=== PATIENT | female | born 1960 | race Hispanic/Latino ===

== ENCOUNTER 2024-02-28 05:45 | Day surgery (SDC) | payer MEDICAID ==
[~2024-02-28] VITALS: Ht 144.8 cm; Wt 39.5 kg
[2024-02-28] VITALS (10 sets, daily range): BP systolic 92–128; BP diastolic 48–72; PULSE 75–86; RESP 14–18; TEMP 97–207.7
[2024-02-28] MEDS ORDERED: TICA90TA PO (07:30)
[2024-02-28] MEDS ORDERED: OMEP20CA12 PO (07:30)
[2024-02-28] MEDS ORDERED: ATOR40TA69 PO (07:30)
[2024-02-28] MEDS ORDERED: FAMO40TA7 PO (07:30)
[2024-02-28] MEDS ORDERED: GEMF600T89 PO (07:30)
[2024-02-28] MEDS ORDERED: CETI10TA87 PO (07:30)
[2024-02-28] MEDS ORDERED: ALEN70TA80 PO (07:30)
[2024-02-28] MEDS ORDERED: SUCR1TAB2 PO (07:30)
[2024-02-28] MEDS ORDERED: ASPI-1005 PO (07:30)
[2024-02-28] MEDS ORDERED: LINA290C PO (07:30)
[2024-02-28] MEDS ORDERED: MONT-39 PO (07:30)
[2024-02-28] MEDS: 0.9%NACL 1000ML 1,000 ML IV ONE (07:30)
[2024-02-28] MEDS ORDERED: DULO20CA18 PO (07:30)
[2024-02-28] MEDS ORDERED: ALBU18HF7 IH (07:30)
[2024-02-28] MEDS ORDERED: METO-408 PO (07:30)
[2024-02-28] MEDS ORDERED: proPOFol 10 MG/ML 20ML VIAL IV ONE (07:57)
[2024-02-28] MEDS ORDERED: LIDOCAINE PF 100MG/5ML (2%) SYRINGE 5ML ONE (07:57)
[2024-02-28] MEDS ORDERED: GLYCOPYRROLATE 0.2 MG/ML 5 ML VIAL ONE (07:58)
== END 2024-02-28 10:00 | disposition home or self-care (01) ==
LOC: ENDO 05:45 → DAH 05:45 → ENDO 10:00
PROVIDERS: ATTEND Internal Medicine
DX: R13.10 Dysphagia, unspecified (principal); K29.50 Unspecified chronic gastritis without bleeding; K31.84 Gastroparesis; R11.2 Nausea with vomiting, unspecified; K44.9 Diaphragmatic hernia without obstruction or gangrene; K22.89 Other specified disease of esophagus; K21.9 Gastro-esophageal reflux disease without esophagitis; R12 Heartburn; J45.909 Unspecified asthma, uncomplicated; E78.5 Hyperlipidemia, unspecified; M19.90 Unspecified osteoarthritis, unspecified site; K59.04 Chronic idiopathic constipation; Z98.0 Intestinal bypass and anastomosis status; Z79.01 Long term (current) use of anticoagulants; Z90.49 Acquired absence of other specified parts of digestive tract; Z87.442 Personal history of urinary calculi; Z98.890 Other specified postprocedural states
CPT/HCPCS: 82948 ×2; 43239; J7030; J2003; J2704; J3490; A4215; A4223; A4222; A4221; A4663; A4606